=== PATIENT | female | born 1995 ===

== ENCOUNTER 2020-10-05 08:13 | Emergency (ER) | payer SELFPAY ==
[2020-10-05 08:21] VITALS: BP 129/90
[2020-10-05 08:54] LABS: HCG Qualitative,Urine Negative (Negative)
[2020-10-05 08:58] LABS: Bilirubin,Urine NEG (Negative); Blood,Urine SM (Negative); Color,Urine Yellow (Yellow); Mucus,Urine 1+ /HPF; Protein,Urine <15 mg/dL mg/dL (Negative)
[2020-10-05] MEDS ORDERED: KETOROLAC 30 MG/1 ML INJ IV ONE (10:43)
--- NOTE | 2020-10-05 10:44 | Emergency Department Report ---
ED Abdominal Pain HPI - General Chief Complaint: Abdominal Pain Stated Complaint: ABD PAIN Time Seen by Provider: 10/05/20 10:18 Source: patient Mode of arrival: Ambulatory Limitations: No Limitations - History of Present Illness Initial Comments: 25-year-old female presents to the ER today complaint of left lower quadrant abdominal pain. Patient states that her symptoms started about 6 days ago. She describes as an intermittent pain that seems to be worse with walking and laying on to the left side. Patient reports associated diarrhea. She states that for the first 2 to 3 days she had a watery stools, but since then it has just been loose and what she describes as "stringy". She reports no melena or hematochezia. She denies any nausea or vomiting. She denies any fever or chills. She denies any vaginal symptoms. She denies any recent travel out of the country, recent antibiotic use or bad food intake. She states the first day of her last menstrual cycle was around September 26. She did not try anything for pain. MD Complaint: abdominal pain -: Gradual, days(s) (6) - Related Data Previous Rx's Medication Instructions Recorded Last Taken Type Acetaminophen/Codeine [Tylenol 1 tab PO Q6H PRN #12 tab 10/05/20 Unknown Rx /Codeine # 3 tab] Allergies Allergy/AdvReac Type Severity Reaction Status Date / Time No Known Allergies Allergy Unverified 10/05/20 08:18 ED Review of Systems ROS: Stated complaint: ABD PAIN Other details as noted in HPI Constitutional: denies: chills, fever Eyes: denies: eye pain, eye discharge, vision change Respiratory: denies: cough, shortness of breath, wheezing Cardiovascular: denies: chest pain, palpitations Gastrointestinal: abdominal pain, diarrhea. denies: nausea, vomiting, constipation, hematemesis, melena, hematochezia Genitourinary: denies: urgency, dysuria, frequency, hematuria, discharge, abnormal menses Skin: denies: rash, lesions Neurological: denies: headache, weakness, paresthesias Psychiatric: denies: anxiety, depression Hematological/Lymphatic: denies: easy bleeding, easy bruising ED Past Medical Hx - Past Medical History Hx Seizures: Yes (Epilepsy) - Surgical History Past Surgical History?: No - Social History Smoking Status: Never Smoker Substance Use Type: None - Medications Home Medications: Home Medications Medication Instructions Recorded Confirmed Last Taken Type Acetaminophen/Codeine [Tylenol 1 tab PO Q6H PRN #12 tab 10/05/20 Unknown Rx /Codeine # 3 tab] ED Physical Exam - General Limitations: No Limitations General appearance: alert, in no apparent distress - Head Head exam: Present: atraumatic, normocephalic, normal inspection - Eye Eye exam: Present: normal appearance, PERRL, EOMI - ENT ENT exam: Present: normal exam, mucous membranes moist - Respiratory Respiratory exam: Absent: respiratory distress - Cardiovascular Cardiovascular Exam: Present: regular rate - GI/Abdominal GI/Abdominal exam: Present: soft, tenderness (Moderate suprapubic tenderness with some mild guarding, as well as tenderness palpation to the left lower quadrant without any guarding or rebound.). Absent: distended - Neurological Exam Neurological exam: Present: alert, oriented X3, CN II-XII intact - Psychiatric Psychiatric exam: Present: normal affect, normal mood - Skin Skin exam: Present: intact ED Course Vital Signs 10/05/20 08:18 Temperature 98.4 F Pulse Rate 82 Respiratory 16 Rate Blood Pressure 129/90 O2 Sat by Pulse 100 Oximetry ED Medical Decision Making - Lab Data Result diagrams: 10/05/20 11:03 10/05/20 11:03 - Radiology Data Radiology results: report reviewed - Medical Decision Making Patient currently resting comfortably. She does not appear to be in any distress. Repeat abd exam soft and non tender. Her vs stable. Labs/CT results reviewed with patient. Discussed suspected dx and tx plan with patient. Recommend follow up OBGYN for outpatient US. NO further testing, admission or emergent consult indicated at this time. Pt expressed understanding of instructions and agreed with plan. Patient was stable at time of d/c. Critical care attestation.: If time is entered above; I have spent that time in minutes in the direct care of this critically ill patient, excluding procedure time. ED Disposition Clinical Impression: Diarrhea, Lower abdominal pain, Ovarian cyst Disposition: TO HOME OR SELFCARE Is pt being admited?: No Does the pt Need Aspirin: No Condition: Stable Instructions: Diarrhea, Adult, Ovarian Cyst, Abdominal Pain (ED) Additional Instructions: Take medications as prescribed. If your diarrhea continues you can take immodium from over the counter. I recommend follow up with OBGYN for outpatient pelvic US to further evaluate ovarian cyst. Return to ED if your symptoms changes or worsens in any way. Prescriptions: Acetaminophen/Codeine [Tylenol /Codeine # 3 tab] 1 tab PO Q6H PRN #12 tab PRN Reason: Pain , Severe (7-10) Referrals: DILLON MENESES MD [Staff Physician] - 3-5 Days JEFFREY SAVAGE MD [Staff Physician] - 3-5 Days Time of Disposition: 15:26
[2020-10-05 11:20] LABS: Basophils % (Auto) 0.5 % (0.0-1.8); Eosinophils % (Auto) 0.8 % (0.0-4.3); Hematocrit 37.4 % (30.3-42.9); Hemoglobin 12.7 gm/dl (10.1-14.3); Lymphocytes # (Auto) 1.2 K/mm3 (1.2-5.4); Lymphocytes % (Auto) 20.2 % (13.4-35.0); Mean Corpuscular HGB Conc 34 % (30-34); Mean Corpuscular Volume 95 fl (79-97); Monocytes # (Auto) 0.5 K/mm3 (0.0-0.8); Platelet Count 176 K/mm3 (140-440); Red Blood Count 3.93 M/mm3 (3.65-5.03); Red Cell Distribution Width 12.1 % (13.2-15.2)
[2020-10-05 11:42] LABS: Alanine Aminotransferase 7 units/L (7-56); Albumin 3.8 g/dL (3.9-5); Blood Urea Nitrogen 6 mg/dL (7-17); Calcium 9.4 mg/dL (8.4-10.2); Hemolysis Index 2
[2020-10-05 11:51] LABS: BUN/Creatinine Ratio 9
--- NOTE | 2020-10-05 14:58 | Cat Scan Report ---
CT ABDOMEN AND PELVIS WITH CONTRAST INDICATION / CLINICAL INFORMATION: LLQ/suprapubic pain/diarrhea. TECHNIQUE: Axial CT images were obtained through the abdomen and pelvis after IV contrast. All CT scans at this location are performed using CT dose reduction for ALARA by means of automated exposure control. COMPARISON: None available. FINDINGS: LOWER CHEST: No significant abnormality. LIVER: Hyperattenuating lesion of the left hepatic lobe (series 2 image 63) measures 1.2 cm. Addition al small hypoattenuating area in hepatic segment 4 likely represents focal fatty replacement. GALLBLADDER: No significant abnormality. BILE DUCTS: No significant abnormality. PANCREAS: No significant abnormality. SPLEEN: Small splenule. ADRENALS: No significant abnormality. RIGHT KIDNEY / URETER: No significant abnormality. LEFT KIDNEY / URETER: No significant abnormality. STOMACH / SMALL BOWEL: No significant abnormality. COLON: No significant abnormality. APPENDIX: No significant abnormality. PERITONEUM: Small volume minimally complex fluid noted in the pelvis (HU 20-33). No free air. LYMPH NODES: No significant adenopathy. AORTA / ARTERIES: No significant abnormality. IVC / VEINS: No significant abnormality. URINARY BLADDER: No significant abnormality. REPRODUCTIVE ORGANS: Minimally complex right adnexal cyst measures 2.7 cm. Additional minimally compl ex cyst of the left adnexa measures 1.3 cm. ADDITIONAL FINDINGS: None. SKELETAL SYSTEM: No significant abnormality. IMPRESSION: 1. Minimally complex bilateral adnexal cysts, the largest on the right measuring 2.7 cm. Additionally , there is small volume complex fluid in the pelvis (HU 20-33). These findings could be seen in the s etting of ruptured hemorrhagic ovarian cyst. Further evaluation with pelvic ultrasound may be helpful if clinically indicated. 2. 1.2 cm hyperattenuating lesion of the left hepatic lobe could represent a hemangioma, however it i s incompletely characterized on this exam. Nonemergent CT triple phase liver would be helpful for fur ther catheterization. Signer Name: Dillon Cowan MD Signed: 10/05/2020 2:53 PM Workstation Name: [id number]
== END 2020-10-05 16:07 | disposition home or self-care (01) ==
LOC: ED 08:13
DX: N83.209 Unspecified ovarian cyst, unspecified side (principal); R19.7 Diarrhea, unspecified; R10.32 Left lower quadrant pain; G40.909 Epilepsy, unspecified, not intractable, without status epilepticus; Z79.899 Other long term (current) drug therapy
CPT/HCPCS: 36415; 74177; 80053; 81001; 81025; 83690; 85025; 96374; 99284; J1885; Q9967

== ENCOUNTER 2020-10-08 09:13 | Emergency (ER) | payer SELFPAY ==
--- NOTE | 2020-10-08 12:01 | XRay Report ---
CHEST 2 VIEWS INDICATION / CLINICAL INFORMATION: right side pain with cough. COMPARISON: None available. FINDINGS: SUPPORT DEVICES: None. HEART / MEDIASTINUM: No significant abnormality. LUNGS / PLEURA: No significant pulmonary or pleural abnormality. No pneumothorax. ADDITIONAL FINDINGS: No significant additional findings. IMPRESSION: 1. No acute findings. Signer Name: Joaquin Hernandez MD Signed: 10/08/2020 11:57 AM Workstation Name: [id number]
--- NOTE | 2020-10-08 12:41 | Emergency Department Report ---
ED General Adult HPI - General Chief complaint: Abdominal Pain Stated complaint: SOB/COUGH/BRENNA Time Seen by Provider: 10/08/20 11:06 Source: patient Mode of arrival: Ambulatory Limitations: No Limitations - History of Present Illness Initial comments: Patient is a 25-year-old F [place] female who is presenting with right flank pain. Patient states she was here 2 days ago for some left lower quadrant pain. Patient was diagnosed with bilateral ovarian cyst which appeared hemorrhagic and possibly ruptured. Patient states over the last 2 days she has developed some pain in the right flank as well. Pain is worse with movement and deep breathing and cough. She states she is not coughing excessively and there is no shortness of breath. Patient states the pain is 8 out of 10 in severity is not improved with the Tylenol 3 which she was given several days ago. She denies dysuria vaginal bleeding vaginal discharge. - Related Data Previous Rx's Medication Instructions Recorded Last Taken Type Acetaminophen/Codeine [Tylenol 1 tab PO Q6H PRN #12 tab 10/05/20 Unknown Rx /Codeine # 3 tab] Ketorolac [Toradol] 10 mg PO Q6H PRN #12 tablet 10/08/20 Unknown Rx Allergies Allergy/AdvReac Type Severity Reaction Status Date / Time No Known Allergies Allergy Unverified 10/05/20 08:18 ED Review of Systems ROS: Stated complaint: SOB/COUGH/BRENNA Other details as noted in HPI Comment: All other systems reviewed and negative ED Past Medical Hx - Past Medical History Previous Medical History?: Yes Hx Seizures: Yes (Epilepsy) Additional medical history: Ruptured ovarian cyst - Surgical History Past Surgical History?: No - Social History Smoking Status: Current Every Day Smoker Substance Use Type: Alcohol, Marijuana - Medications Home Medications: Home Medications Medication Instructions Recorded Confirmed Last Taken Type Acetaminophen/Codeine [Tylenol 1 tab PO Q6H PRN #12 tab 10/05/20 Unknown Rx /Codeine # 3 tab] Ketorolac [Toradol] 10 mg PO Q6H PRN #12 tablet 10/08/20 Unknown Rx ED Physical Exam - General Limitations: No Limitations General appearance: alert, in no apparent distress - Head Head exam: Present: atraumatic, normocephalic - Eye Eye exam: Present: normal appearance - ENT ENT exam: Present: mucous membranes moist - Neck Neck exam: Present: normal inspection - Respiratory Respiratory exam: Present: normal lung sounds bilaterally. Absent: respiratory distress, wheezes, rales, rhonchi - Cardiovascular Cardiovascular Exam: Present: regular rate, normal rhythm. Absent: systolic murmur, diastolic murmur, rubs, gallop - GI/Abdominal GI/Abdominal exam: Present: soft, normal bowel sounds. Absent: distended, tenderness, guarding, rebound - Extremities Exam Extremities exam: Present: normal inspection - Back Exam Back exam: Present: normal inspection - Neurological Exam Neurological exam: Present: alert, oriented X3 - Psychiatric Psychiatric exam: Present: normal affect, normal mood - Skin Skin exam: Present: warm, dry, intact, normal color. Absent: rash ED Course Vital Signs 10/08/20 10/08/20 09:25 12:00 Temperature 98.1 F Pulse Rate 80 68 Respiratory 16 17 Rate Blood Pressure 137/54 111/74 O2 Sat by Pulse 98 93 Oximetry ED Medical Decision Making - Radiology Data Ordering Physician: JAZMIN RIVERA MD Date of Service: 10/08/20 Procedure(s): XR chest routine 2V Accession Number(s): [id number] cc: JAZMIN RIVERA MD Fluoro Time In Minutes: CHEST 2 VIEWS INDICATION / CLINICAL INFORMATION: right side pain with cough. COMPARISON: None available. FINDINGS: SUPPORT DEVICES: None. HEART / MEDIASTINUM: No significant abnormality. LUNGS / PLEURA: No significant pulmonary or pleural abnormality. No pneumothorax. ADDITIONAL FINDINGS: No significant additional findings. IMPRESSION: 1. No acute findings. Signer Name: Joaquin Hernandez MD Signed: 10/08/2020 11:57 AM Workstation Name: [id number] - Medical Decision Making Patient states there was some increase discomfort with breathing. Chest x-ray was ordered which shows no infiltrate. Did review her laboratory studies from several days ago and there was no abnormality. Patient likely with some transition of her pain secondary to ruptured ovarian cyst. Patient does have appointment to see her SERVICE PROVIDER. Patient started on Toradol for pain Critical care attestation.: If time is entered above; I have spent that time in minutes in the direct care of this critically ill patient, excluding procedure time. ED Disposition Clinical Impression: Ruptured ovarian cyst Disposition: DC- TO HOME OR SELFCARE Is pt being admited?: No Does the pt Need Aspirin: No Condition: Stable Instructions: Abdominal Pain (ED), Ovarian Cyst, [id number] Time of Disposition: 12:40
[2020-10-08 13:22] VITALS: BP 119/78
== END 2020-10-08 13:20 | disposition home or self-care (01) ==
LOC: ED 09:13
DX: N83.209 Unspecified ovarian cyst, unspecified side (principal); G40.909 Epilepsy, unspecified, not intractable, without status epilepticus; F17.200 Nicotine dependence, unspecified, uncomplicated; F12.90 Cannabis use, unspecified, uncomplicated; Z79.899 Other long term (current) drug therapy
CPT/HCPCS: 71046

== ENCOUNTER 2021-06-29 16:08 | Emergency (ER) | payer SELFPAY ==
[2021-06-29 17:26] VITALS: BP 120/86
[2021-06-29 19:49] LABS: Bilirubin,Urine NEG (Negative); Blood,Urine NEG (Negative); Color,Urine Yellow (Yellow); Mucus,Urine FEW /HPF; Protein,Urine <15 mg/dL mg/dL (Negative)
--- NOTE | 2021-06-29 20:06 | Emergency Department Report ---
ED General Adult HPI - General Chief complaint: Vaginal Bleeding Stated complaint: VAG BLEEDING Time Seen by Provider: 06/29/21 19:49 Source: patient Mode of arrival: Ambulatory Limitations: No Limitations - History of Present Illness Initial comments: 26-year-old female patient presents emergency department with complaints of lower abdominal pain and vaginal bleeding for 8 days. Describes the pain as "cramps." Patient states her last normal menstrual cycle was on June 04. Two weeks later, she started bleeding again. She has been bleeding through approximately 10 pads/tampons every 24 hours for the last eight days. She is sexually active. She has not taken a test. Denies fever, chills, nausea, vomiting, diarrhea, constipation, urinary symptoms. Denies other complaints at this time. - Related Data Previous Rx's Medication Instructions Recorded Last Taken Type Acetaminophen/Codeine [Tylenol 1 tab PO Q6H PRN #12 tab 10/05/20 Unknown Rx /Codeine # 3 tab] Ketorolac [Toradol] 10 mg PO Q6H PRN #12 tablet 10/08/20 Unknown Rx Allergies Allergy/AdvReac Type Severity Reaction Status Date / Time No Known Allergies Allergy Verified 06/29/21 17:23 ED Review of Systems ROS: Stated complaint: VAG BLEEDING Other details as noted in HPI Other: GENERAL: Negative for fever, chills, weight change, anorexia, fatigue. ENT: Negative for ear pain, difficulty hearing, sore throat, nasal congestion, epistaxis. CARDIOVASCULAR: Negative for chest pain, palpitations, lower extremity swelling. PULMONARY: Negative for cough, dyspnea, wheezing, orthopnea, cyanosis. GASTROINTESTINAL: Positive for abdominal pain. GENITOURINARY: Positive for vaginal bleeding. MUSCULOSKELETAL: Negative for joint pain, joint swelling, myalgias, back pain, neck pain. NEUROLOGICAL: Negative for headache, seizure, syncope, paresthesias, weakness. INTEGUMENTARY: Negative for erythema, rash, diaphoresis, laceration, ecchymosis. HEMATOLOGICAL: Negative for hemoptysis, hematemesis, hematochezia, hematuria. PSYCHIATRIC: Negative for hallucinations, suicidal ideation, homicidal ideation, anxiety, depression. ED Past Medical Hx - Past Medical History Hx Seizures: Yes (Epilepsy) Additional medical history: Ruptured ovarian cyst - Surgical History Past Surgical History?: No - Social History Smoking Status: Current Every Day Smoker Substance Use Type: Alcohol, Marijuana - Medications Home Medications: Home Medications Medication Instructions Recorded Confirmed Last Taken Type Acetaminophen/Codeine [Tylenol 1 tab PO Q6H PRN #12 tab 10/05/20 Unknown Rx /Codeine # 3 tab] Ketorolac [Toradol] 10 mg PO Q6H PRN #12 tablet 10/08/20 Unknown Rx ED Physical Exam - General Limitations: No Limitations - Other Other exam information: General: Awake and alert. No acute distress. Head: Atraumatic, normocephalic. Eyes: EOMI. Pupils are equal and round. Normal sclera and conjunctiva. ENT: Oral mucosa is moist. Normal pharyngeal exam. Neck: Supple. No lymphadenopathy. Pulmonary: No respiratory distress. Clear to auscultation bilaterally. Cardiac: Regular rate and rhythm. Pulses are palpable and equal bilaterally. No lower extremity cyanosis or edema. Skin: Warm and dry. No rashes. Abdomen: Soft, non-tender, non-protuberant. No guarding, rigidity, or rebound. Bowel sounds are normal. No organomegaly or masses noted. Back: Normal alignment. No CVA tenderness. Extremities: Symmetrical. Full range of motion intact. Neurological: Alert and oriented, appropriately interactive, no focal deficits. Psych: Cooperative. Appropriate mood and affect. Speech is evenly metered. Thoughts are logically construed. ED Course Vital Signs 06/29/21 17:24 Temperature 98.2 F Pulse Rate 60 Respiratory 16 Rate Blood Pressure 120/86 O2 Sat by Pulse 100 Oximetry ED Medical Decision Making - Lab Data Result diagrams: 06/29/21 20:14 06/29/21 20:14 - Medical Decision Making Differential diagnosis including but not limited to: , urinary tract infection, ovarian cyst/torsion, endometriosis, uterine fibroids, anemia On reevaluation, patient remains stable. Repeat abdominal exam is benign. test is negative. Urinalysis without signs of infection. Hemoglobin is stable. No clinical indication for further diagnostic work-up on an emergent basis at this time. Patient will be discharged home with referral to gynecology for close outpatient follow-up. Patient expressed understanding and is agreeable to plan of care. Strict return precautions provided. Repeat exam is unremarkable and benign. History, exam, diagnostic testing, and current condition do not suggest worrisome pathology to warrant further testing, continued ED treatment, admission, or surgical evaluation at this point. Given the low probability of a significant medical illness, it would be more likely to result in harm than benefit to perform further testing at this stage. Discussed findings, presumptive diagnosis, need for follow-up and specific signs/symptoms that should prompt immediate return to the emergency department. Instructions were explained in detail to the patient in addition to giving written discharge information. Patient expressed understanding and was given the opportunity to ask questions, all of which were satisfactorily answered prior to discharge home. Critical care attestation.: If time is entered above; I have spent that time in minutes in the direct care of this critically ill patient, excluding procedure time. ED Disposition Clinical Impression: Dysfunctional uterine bleeding Disposition: DC- TO HOME OR SELFCARE Is pt being admited?: No Does the pt Need Aspirin: No Condition: Stable Instructions: Abnormal Uterine Bleeding, [id number] Additional Instructions: Take Tylenol every 4 hours as needed for pain. Increase your dietary intake of iron rich foods. Follow-up with print line operator this week. Call tomorrow to schedule an appointment. See referral information below. Return to the emergency department immediately for new or worsening symptoms. Referrals: [facility] [Provider Group] - 3-5 Days MARITZA MANTILLA MD [Staff Physician] - 3-5 Days Time of Disposition: 21:12
[2021-06-29 20:35] LABS: Basophils % (Auto) 0.6 % (0.0-1.8); Eosinophils # (Auto) 0.1 K/mm3 (0.0-0.4); Eosinophils % (Auto) 0.8 % (0.0-4.3); Hematocrit 37.8 % (30.3-42.9); Hemoglobin 12.9 gm/dl (10.1-14.3); Lymphocytes # (Auto) 1.8 K/mm3 (1.2-5.4); Lymphocytes % (Auto) 22.5 % (13.4-35.0); Mean Corpuscular HGB Conc 34 % (30-34); Mean Corpuscular Volume 95 fl (79-97); Monocytes # (Auto) 0.5 K/mm3 (0.0-0.8); Monocytes % (Auto) 6.6 % (0.0-7.3); Platelet Count 133 K/mm3 (140-440); Red Blood Count 3.98 M/mm3 (3.65-5.03); Red Cell Distribution Width 13.2 % (13.2-15.2)
[2021-06-29 20:54] LABS: Alanine Aminotransferase 8 units/L (7-56); Albumin 4.4 g/dL (3.9-5); BUN/Creatinine Ratio 9; Blood Urea Nitrogen 7 mg/dL (7-17); Calcium 9.7 mg/dL (8.4-10.2); Hemolysis Index 11
== END 2021-06-29 21:15 | disposition home or self-care (01) ==
LOC: ED 16:08
DX: N93.8 Other specified abnormal uterine and vaginal bleeding (principal); G40.909 Epilepsy, unspecified, not intractable, without status epilepticus; F17.200 Nicotine dependence, unspecified, uncomplicated; F12.10 Cannabis abuse, uncomplicated
CPT/HCPCS: 36415; 80053; 81001; 84702; 85025; 86900; 86901; 99283